=== PATIENT | female | born 1965 | race African-American/Black ===

== ENCOUNTER 2018-08-19 15:00 | Emergency (ER) | payer MEDICAID ==
[~2018-08-19] VITALS: Ht 167.6 cm; Wt 59.0 kg
[2018-08-19] MEDS ORDERED: TETANUS, DIPHTHERIA, PERTUSSIS VAC/PF 0.5ML (>7YR OLD) IM ONE (15:45)
[2018-08-19 15:53] LABS: CHLORIDE 111 mEq/L (98-107)
[2018-08-19 15:55] LABS: BASOPHILS % 1.1 % (0.0-2.0); EOSINOPHILS % 1.3 % (0.0-5.0); HEMATOCRIT. 33.2 % (36.0-48.0); HEMOGLOBIN. 10.9 g/dL (12.0-16.0); LYMPHOCYTES % 28.9 % (20.0-50.0); MEAN CORPUSCULAR HEMOGLOBIN 30.3 pg (28.0-32.0); MEAN CORPUSCULAR VOLUME 92.3 fL (81.0-99.0); MEAN PLATELET VOLUME 7.7 fl (7.4-10.4); MONOCYTES % 8.9 % (2.0-8.0); NEUTROPHILS % 59.8 % (40.0-76.0); PLATELET 245 x1000/uL (130-400); RED BLOOD CELL COUNT 3.59 mill/uL (4.2-5.4); RED CELL DISTRIBUTION WIDTH 15.9 % (11.6-14.6)
[2018-08-19 15:57] LABS: ETHANOL BLOOD 198 mg/dL
[2018-08-19] MEDS ORDERED: SODIUM CHLORIDE 0.9% 1,000 ML IV ONE (16:15)
[2018-08-19 17:30] VITALS: BP 92/52
== END 2018-08-19 19:12 | disposition left against medical advice (07) ==
LOC: ER 15:35
DX: F10.129 Alcohol abuse with intoxication, unspecified (principal); R41.82 Altered mental status, unspecified; Y90.9 Presence of alcohol in blood, level not specified; Z59.0 Homelessness
CPT/HCPCS: 36415; 80053; 80307; 80320; 80329; 85025; 90471; 90715; 96360; 99284; J7030; G0480

== ENCOUNTER 2018-10-05 03:18 | Emergency (ER) | payer MEDICAID ==
[~2018-10-05] VITALS: Ht 175.3 cm; Wt 66.0 kg
[2018-10-05 03:33] VITALS: BP 116/81
[2018-10-05] MEDS: ACETAMINOPHEN 500MG TABLET PO ONE (06:50)
== END 2018-10-05 07:58 | disposition home or self-care (01) ==
LOC: ER 03:48
DX: G89.29 Other chronic pain (principal); M19.90 Unspecified osteoarthritis, unspecified site; F17.200 Nicotine dependence, unspecified, uncomplicated
CPT/HCPCS: 99282